=== PATIENT | female | born 1955 | race Caucasian/White ===

== ENCOUNTER 2019-05-02 18:26 | Emergency (ER) | payer OTHER ==
--- OUTSIDE RECORDS SUMMARY | 2019-05-02 18:45 | XMS REPORT | Continuity of Care Document ---
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 Social History Type Date Description Comments Sex Unknown Tobacco Use Start: Unknown Never Smoked Cigarettes Tobacco Use Start: Unknown Never Smoked Cigars Tobacco Use Start: Unknown Never Smoked A Pipe Smoking Status Reviewed: 05/02/19 Never Smoked A Pipe Smokeless Tobacco Never Used Smokeless Tobacco ETOH Use Rarely consumes alcohol Recreational Drug Use Denies Drug Use Tobacco Use Start: Unknown End: Patient is a former in high school- Unknown smoker only smoked for 3 months Exercise Type/Frequency Does not exercise Allergies, Adverse Reactions, Alerts Active Allergies Reaction Severity Comments Date Amoxicillin light sensitivity 01/01/2017 Medications Active Medications SIG Qnty Indications Ordering Provider Date Alendronate Sodium take 1 tablet by emerson Brantley MD 02/28/2018 mouth once a week 70mg Tablets on an empty stomach Advil 1 po as needed Unknown 200mg Tablets Stool Softener 1 by mouth 2-3 Unknown 100mg times daily while Capsules on narcotic pain medication prn D3-1000 1 daily Unknown 1000Unit Capsules Vitamin B12 TR 1 by mouth every Unknown day 1000mcg Tablets ER Immunizations Description No Information Available Vital Signs Date Vital Result Comment 05/02/2019 12:06pm Height 63.5 inches 5'3.50" Weight 131.25 lb Heart Rate 70 /min BP Systolic 150 mmHg 147/100 BP Diastolic 88 mmHg 147/100 Body Temperature 97.6 F O2 % BldC Oximetry 98 % BMI (Body Mass Index) 22.9 kg/m2 04/04/2019 8:45am Height 63.5 inches 5'3.50" Weight 130.00 lb w/ shoes Heart Rate 69 /min BP Systolic Sitting 116 mmHg BP Diastolic Sitting 79 mmHg BMI (Body Mass Index) 22.7 kg/m2 Results Description No Information Available Procedures Date Code Description Status 12/23/2018 [id number] Mammogram Completed 12/26/2017 [id number] Colonoscopy Completed 11/19/2017 [id number] Bone Mineral Density Test Completed 11/19/2017 [id number] Mammogram Completed 06/11/2004 [id number] Colonoscopy Completed Medical Devices Description No Information Available Encounters Type Date Location Provider Dx Diagnosis Office Visit 04/04/2019 [place] [facility] and Lai Brantley MD M81.0 Age- related 9:00a [facility]ocrinology of [facility] osteoporosis w/o current pathological fracture Office Visit 03/18/2019 [facility] Dermatology Madina Salinas L82.1 Other seborrheic 10:30a keratosis D22.5 Melanocytic nevi of trunk L72.0 Epidermal cyst Z08 Encntr for follow-up exam after trtmt for malignant neoplasm Z85.828 Personal history of other malignant neoplasm of skin Assessments Date Code Description Provider 05/02/2019 R10.31 Right lower quadrant pain Cisco Al, OVERSIZE LOAD PILOT ESCORT 05/02/2019 R10.813 Right lower quadrant abdominal tenderness Cisco Al, OVERSIZE LOAD PILOT ESCORT 04/04/2019 M81.0 Age-related osteoporosis without current Lai Brantley MD pathological fractu 03/18/2019 L82.1 Other seborrheic keratosis Madina Salinas MD 03/18/2019 D22.5 Melanocytic nevi of trunk Madina Salinas MD 03/18/2019 L72.0 Epidermal cyst Madina Salinas MD 03/18/2019 Z08 Encounter for follow-up examination after Madina Salinas MD completed treatment for malignant neoplasm 03/18/2019 Z85.828 Personal history of other malignant neoplasm of Madina Salinas MD skin Plan of Treatment Future Appointment(s):03/19/2020 11:00 am - Madina Salinas MD at [facility] Duitvuoyqds56/22/2019 - Cisco Melendez, NPR10.31 Right lower quadrant painComments: I am sending you for an image of your abdomen and some bloodwork.R10.813 Right lower quadrant abdominal tenderness Functional Status Description No Information Available Mental Status Description No Information Available Referrals Description No Information Available
--- OUTSIDE RECORDS SUMMARY | 2019-05-02 18:45 | XMS REPORT | Continuity of Care Document ---
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 Social History Type Date Description Comments Sex Unknown Tobacco Use Start: Unknown Never Smoked Cigarettes Tobacco Use Start: Unknown Never Smoked Cigars Tobacco Use Start: Unknown Never Smoked A Pipe Smoking Status Reviewed: 04/04/19 Never Smoked A Pipe Smokeless Tobacco Never [...] Date Alendronate Sodium take 1 tablet by 4tabs Lai Brantley MD 02/28/2018 mouth once a week [...] Available Vital Signs Date Vital Result Comment 04/04/2019 8:45am Height 63.5 inches 5'3.50" Weight 130.00 lb w/ shoes Heart Rate 69 /min BP Systolic Sitting 116 mmHg BP Diastolic Sitting 79 mmHg BMI (Body Mass Index) 22.7 kg/m2 08/08/2018 2:13pm Height 63.5 inches 5'3.50" Weight 140.25 lb Heart Rate 66 /min BP Systolic 127 mmHg BP Diastolic 85 mmHg Body Temperature 98.1 F O2 % BldC Oximetry 99 % BMI (Body Mass Index) 24.5 kg/m2 Results Description No Information Available Procedures Date Code Description Status 12/23/2018 [id number] Mammogram Completed 12/26/2017 [id number] Colonoscopy Completed 11/19/2017 [id number] Bone Mineral Density Test Completed 11/19/2017 [id number] Mammogram Completed 06/11/2004 [id number] Colonoscopy Completed Medical Devices Description No Information Available Encounters Type Date Location Provider Dx Diagnosis Office Visit 04/04/2019 [place] Diabetes and Lai Brantley MD M81.0 Age- related 9:00a [facility]ocrin[facility] of [facility] osteoporosis w/o current pathological fracture Office Visit 03/18/2019 [facility] Dermatology Madina Salinas L82.1 Other seborrheic 10:30a keratosis D22.5 Melanocytic nevi of trunk L72.0 Epidermal cyst Z08 Encntr for follow-up exam after trtmt for malignant neoplasm Z85.828 Personal history of other malignant neoplasm of skin Assessments Date Code Description Provider 04/04/2019 M81.0 Age-related osteoporosis without current Lai [...] 11:00 am - Madina Salinas MD at [facility] Xpaoseuptyi15/25/2019 - Lai Brantley MDM81.0 Age-related osteoporosis without current pathological fractuFollow up:1 yearInstructions:1. Continue Fosamax 70mg once weekly for now. 2. You may try stopping Fosamax for 1 month to see if stomach symptoms resolve. 3. You are a candidate for once yearly Reclast infusion. 4. Return in 1 year. Functional Status Description No Information Available Mental Status Description No Information Available Referrals Description No Information Available
[2019-05-02 19:23] LABS: ABS Basophils 0.1 10^3/ul (0-0.2); ABS Eosinophils 0.2 10^3/ul (0-0.6); ABS Lymphocytes 2.2 10^3/ul (1.0-4.8); ABS Monocytes 0.5 10^3/ul (0-0.8); ABS Neutrophils 3.2 10^3/ul (1.5-7.7); Eosinophil % 3.3 %; Hematocrit 39 % (35-47); Hemoglobin 13.3 g/dL (12.0-16.0); Lymphocyte % 35.6 %; Mean Corpuscular HGB Conc 34 g/dL (31-36); Mean Corpuscular Hemoglobin 29 pg (27-31); Mean Corpuscular Volume 84 fL (80-97); Mean Platelet Volume 6.8 fL (7.4-10.4); Platelet Count 225 10^3/uL (150-450); Red Blood Count 4.62 10^6 /uL (3.70-4.87); Red Cell Distribution Width 13 % (10-15); White Blood Count 6.1 10^3/uL (3.5-10.8)
[2019-05-02 19:37] LABS: Albumin 4.3 g/dL (3.2-5.2); Albumin/Globulin Ratio 1.6 (1-3); BUN/Creatinine Ratio 13.9 (8-20); Calcium 9.4 mg/dL (8.6-10.3); EGFR African American 88.7 (>60); EGFR Non-African American 73.3 (>60); Globulin 2.7 g/dL (2-4); Potassium 3.7 mmol/L (3.5-5.0); Total Bilirubin 0.5 mg/dL (0.2-1.0)
[2019-05-02 22:27] LABS: INR 1.01 (0.82-1.09)
[2019-05-03] MEDS ORDERED: NS 0.9% 1000 ML** 1,000 ML IV ONE (00:05)
--- NOTE | 2019-05-03 00:05 | ED ---
Abdominal Pain/Female - HPI Summary HPI Summary: Patient complains of intermittent right lower quadrant pain 5 months, significantly worse and more frequent in the past 3 days. Patient states abdominal pain has been up to 9/10 at its worst. No active pain at this time. Patient was sent by PCP for outpatient CAT scan to [facility] today, CT positive for acute appendicitis, patient brought to the ED for further evaluation. Patient denies fever, cough, sore throat, CP, SOB, N/3/D, change in urine, change in BM , vaginal symptoms. Medical history is none. Abdominal surgical history is none. No anti-coag. - History of Current Complaint Chief Complaint: EDAbdPain Stated Complaint: ABD PAIN PER PT Time Seen by Provider: 05/03/19 00:02 Hx Obtained From: Patient Onset/Duration: Gradual Onset, Lasting Weeks Timing: Intermittent Episode Lasting Severity Initially: Severe Severity Currently: None Pain Intensity: 0 Pain Scale Used: 0-10 Numeric Location: Discrete At: RLQ Radiates: No Character: Sharp Aggravating Factor(s): Nothing Alleviating Factor(s): Nothing Associated Signs and Symptoms: Positive: Negative Allergies/Adverse Reactions: Allergies Allergy/AdvReac Type Severity Reaction Status Date / Time amoxicillin Allergy Unknown Verified 05/02/19 18:30 Reaction Details Home Medications: Home Medications Cyanocobalamin TAB* [Vitamin B12 TAB*] 1,000 mcg PO DAILY 05/03/19 [History Confirmed 05/03/19] Docusate Sodium 100 mg PO DAILY 05/03/19 [History Confirmed 05/03/19] PMH/Surg Hx/FS Hx/Imm Hx Endocrine/Hematology History: Denies: Hx Diabetes Cardiovascular History: Denies: Hx Pacemaker/ICD History: Denies: Hx Dialysis Musculoskeletal History: Reports: Hx Osteoporosis Sensory History: Denies: Hx Eye Prosthesis Opthamlomology History: Denies: Hx Legally Blind EENT History: Denies: Hx Deafness Neurological History: Denies: Hx Dementia - Surgical History Surgery Procedure, Year, and Place: CERVICAL [place] Bx;. TONSILLECTOMY;. 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; Infectious Disease History: No Infectious Disease History: Denies: Traveled Outside the [place] in Last 30 Days - Family History Known Family History: Negative: Respiratory Disease - Social History Alcohol Use: None Substance Use Type: Reports: None Smoking Status (MU): Never Smoked Tobacco Review of Systems Constitutional: Negative Eyes: Negative ENT: Negative Cardiovascular: Negative Respiratory: Negative Positive: Abdominal Pain Genitourinary: Negative Musculoskeletal: Negative Skin: Negative Neurological: Negative Psychological: Normal All Other Systems Reviewed And Are Negative: Yes Physical Exam - Summary Physical Exam Summary: Very minimal tenderness right lower quadrant with deep pressure. Abdominal exam otherwise unremarkable. Triage Information Reviewed: Yes Vital Signs On Initial Exam: Initial Vitals Temp Pulse Resp BP Pulse Ox 98.6 F 78 19 162/103 96 05/02/19 18:27 05/02/19 18:27 05/02/19 18:27 05/02/19 18:27 05/02/19 18:27 Vital Signs Reviewed: Yes Appearance: Positive: Well-Appearing Skin: Positive: Warm Head/Face: Positive: Normal Head/Face Inspection Eyes: Positive: Normal Neck: Positive: Supple Respiratory/Lung Sounds: Positive: Clear to Auscultation Cardiovascular: Positive: Normal Abdomen Description: Positive: Other: Musculoskeletal: Positive: Normal Neurological: Positive: Normal Psychiatric: Positive: Normal AVPU Assessment: Alert - Nima Coma Scale Best Eye Response: 4 - Spontaneous Best Motor Response: 6 - Obeys Commands Best Verbal Response: 5 - Oriented Coma Scale Total: 15 Procedures - Sedation Patient Received Moderate/Deep Sedation with Procedure: No Diagnostics - Vital Signs Vital Signs Temp Pulse Resp BP Pulse Ox 05/02/19 22:40 98.7 F 70 20 137/72 97 05/02/19 20:40 97.8 F 72 18 122/87 100 05/02/19 18:27 98.6 F 78 19 162/103 96 - Laboratory Lab Results: Lab Results 05/02/19 05/02/19 05/02/19 Range/Units 19:12 19:12 22:08 WBC 6.1 (3.5-10.8) 10^3/uL RBC 4.62 (3.70-4.87) 10^6 /uL Hgb 13.3 (12.0-16.0) g/dL Hct 39 (35-47) % MCV 84 (80-97) fL MCH 29 (27-31) pg MCHC 34 (31-36) g/dL RDW 13 (10-15) % Plt Count 225 (150-450) 10^3/uL MPV 6.8 L (7.4-10.4) fL Neut % (Auto) 51.5 % Lymph % (Auto) 35.6 % [place] % (Auto) 8.4 % Eos % (Auto) 3.3 % Baso % (Auto) 1.2 % Absolute Neuts (auto) 3.2 (1.5-7.7) 10^3/ul Absolute Lymphs (auto) 2.2 (1.0-4.8) 10^3/ul Absolute Monos (auto) 0.5 (0-0.8) 10^3/ul Absolute Eos (auto) 0.2 (0-0.6) 10^3/ul Absolute Basos (auto) 0.1 (0-0.2) 10^3/ul Absolute Nucleated RBC 0.0 10^3/ul Nucleated RBC % 0.0 INR (Anticoag Therapy) 1.01 (0.82-1.09) Sodium 138 (135-145) mmol/L Potassium 3.7 (3.5-5.0) mmol/L Chloride 103 (101-111) mmol/L Carbon Dioxide 29 (22-32) mmol/L Anion Gap 6 (2-11) mmol/L BUN 11 (6-24) mg/dL Creatinine 0.79 (0.51-0.95) mg/dL Est GFR ( Amer) 88.7 (>60) Est GFR (Non-Af Amer) 73.3 (>60) BUN/Creatinine Ratio 13.9 (8-20) Glucose 92 (70-100) mg/dL Calcium 9.4 (8.6-10.3) mg/dL Total Bilirubin 0.50 (0.2-1.0) mg/dL AST 14 (13-39) U/L ALT 8 (7-52) U/L Alkaline Phosphatase 50 (34-104) U/L Total Protein 7.0 (6.4-8.9) g/dL Albumin 4.3 (3.2-5.2) g/dL Globulin 2.7 (2-4) g/dL Albumin/Globulin Ratio 1.6 (1-3) Result Diagrams: 05/02/19 19:12 05/02/19 19:12 Lab Statement: Any lab studies that have been ordered have been reviewed, and results considered in the medical decision making process. Re-Evaluation - Re-Evaluation First Eval Re-Evaluation Time: :34 Comment: 0334 - Patient had been evaluated by Dr. Divya Sanches, surgery. Patient had out-patient CT ABD/PEL 05/02/19 and was noted to have acute appendicitis. On re-eval, patient reports no abdominal pain and no fever. There is no abdominal tenderness to palpitation observed. Bloodwork showed no white count. Patient will be discharged to home with prescription for Augmentin, BID, for four days and will follow up with Dr. Sanches on outpatient basis. Abdominal Pain Fem Course/Dx - Course Course Of Treatment: Patient complains of intermittent right lower quadrant pain 5 months, significantly worse and more frequent in the past 3 days. Patient states abdominal pain has been up to 9/10 at its worst. No active pain at this time. Patient was sent by PCP for outpatient CAT scan to [facility] today, CT positive for acute appendicitis, patient brought to the ED for further evaluation. Patient denies fever, cough, sore throat, CP, SOB, N/3/D, change in urine, change in BM, vaginal symptoms. Medical history is none. Abdominal surgical history is none. No anti-coag. Vital signs within normal limits. Labs unremarkable. CT scan positive for acute appendicitis. Discussed patient with surgery conventions assistant Dr. Sanches who recommended discharge and follow-up in clinic. - Diagnoses Provider Diagnoses: Acute appendicitis Discharge ED - Sign-Out/Discharge Documenting (check all that apply): Patient Departure - Discharge Plan Condition: Stable Disposition: HOME Prescriptions: Amoxicillin/Clavulanate TAB* [Augmentin TAB 875*] 875 mg PO BID #28 tab Patient Education Materials: Acute Abdominal Pain (ED) Referrals: Divya Sanches MD [Medical Doctor] - Yinka Young MD [Primary Care Provider] - Additional Instructions: PLEASE RETURN TO ED FOR ANY NEW OR WORSENING SYMPTOMS. PLEASE FOLLOW UP WITH DR. SANCHES, SURGERY, WITHIN THREE DAYS. - Billing Disposition and Condition Condition: STABLE Disposition: Home
[2019-05-03 01:17] LABS: Urine Appearance Clear; Urine Bilirubin Negative (Negative); Urine Blood 1+ (Negative); Urine Color Straw; Urine Glucose Negative (Negative); Urine Ketones Trace (Negative); Urine Nitrite Negative (Negative); Urine Protein Negative (Negative); Urine Specific Gravity 1.028 (1.010-1.030); Urine Urobilinogen Negative (Negative)
[2019-05-03 01:22] LABS: Urine Bacteria Absent (Absent); Urine Red Blood Cell 1+(3-5/hpf) (Absent); Urine Squamous Epithelial Cell Present (Absent); Urine White Blood Cell Trace(0-5/hpf) (Absent)
--- NOTE | 2019-05-03 03:29 | CONSULT ---
Consult Consult: DATE OF CONSULTATION: 05/03/19 REASON FOR CONSULTATION: Rule out appendicitis HPI: Ms. Singletary is a 64F with a history of osteoporosis who presented to the ED after a CT scan showing a dilated appendix. She reports that she has had a dull ache intermittently in the RLQ for over 10 years. She has had sharper pain for the past 2 months which resolves after a few minutes. The pain may last up to 1.5 hours but always resolves. She denies nausea, vomiting, or fevers. She has intermittent constipation for which she takes stools softeners routinely. She denies bloodly or black stools. She felt the intensity of the pain was more severe in the past couple of days and saw her PCP. A CT scan was ordered which was remarkable for a dilated appendix and she was urged to go to the ED. She had some pain in the waiting room and nausea off and on today. However, the patient is actually asymptomatic now. Last colonoscopy was in 2018 during which she had benign polyps removed. PAST MEDICAL HISTORY: Osteoporosis PAST SURGICAL HISTORY: Cone biopsy of cervix, tonsillectomy Home Medications Medication Instructions Recorded Confirmed Type Cholecalciferol (Vitamin D3) 1,000 unit PO DAILY 12/26/17 05/03/19 History [Vitamin D3] Cyanocobalamin TAB* [Vitamin B12 1,000 mcg PO DAILY 05/03/19 05/03/19 History TAB*] Docusate Sodium 100 mg PO DAILY 05/03/19 05/03/19 History Allergies amoxicillin Allergy (Verified 05/02/19 18:30) Rash with sun exposure FAMILY HISTORY: Father with diabetes. Mother with hydrocephalus. Brother had a stroke at age 65. Another brother with cerebral palsy and significant disability. SOCIAL HISTORY: Patient is single and lives alone. She has 1 son who lives in [facility]. She denies smoking, alcohol use, or recreational drug use. PHYSICAL EXAM: Temp Pulse Resp BP Pulse Ox 98.7 F 71 20 126/83 98 05/02/19 22:40 05/03/19 02:05 05/02/19 22:40 05/03/19 02:05 05/03/19 02:05 General: No acute distress. Appears tired Head: Normocephalic, atraumatic Eyes: EOMI. No scleral icterus Mouth: Mucous membranes moist CV: Regular rate and rhythm Chest: Clear to auscultation bilaterally Abdomen: Soft, nontender to deep palpation, nondistended. No rebound or guarding. Skin: No lesions, intact. Extremities: No pedal edema bilaterally Neuro: Alert and oriented x3 Laboratory Results - last 24 hr 05/02/19 05/02/19 05/02/19 19:12 19:12 22:08 WBC 6.1 RBC 4.62 Hgb 13.3 Hct 39 MCV 84 MCH 29 MCHC 34 RDW 13 Plt Count 225 MPV 6.8 L Neut % (Auto) 51.5 Lymph % (Auto) 35.6 [place] % (Auto) 8.4 Eos % (Auto) 3.3 Baso % (Auto) 1.2 Absolute Neuts (auto) 3.2 Absolute Lymphs (auto) 2.2 Absolute Monos (auto) 0.5 Absolute Eos (auto) 0.2 Absolute Basos (auto) 0.1 Absolute Nucleated RBC 0.0 Nucleated RBC % 0.0 INR (Anticoag Therapy) 1.01 Sodium 138 Potassium 3.7 Chloride 103 Carbon Dioxide 29 Anion Gap 6 BUN 11 Creatinine 0.79 Est GFR ( Amer) 88.7 Est GFR (Non-Af Amer) 73.3 BUN/Creatinine Ratio 13.9 Glucose 92 Lactic Acid Calcium 9.4 Total Bilirubin 0.50 AST 14 ALT 8 Alkaline Phosphatase 50 C-Reactive Protein Total Protein 7.0 Albumin 4.3 Globulin 2.7 Albumin/Globulin Ratio 1.6 Urine Color Urine Appearance Urine pH Ur Specific [place] Urine Protein Urine Ketones Urine Blood Urine Nitrate Urine Bilirubin Urine Urobilinogen Ur Leukocyte Esterase Urine WBC (Auto) Urine RBC (Auto) Ur Squamous Epith Cells Urine Bacteria Urine Glucose 05/03/19 05/03/19 05/03/19 00:13 00:24 00:28 WBC RBC Hgb Hct MCV MCH MCHC RDW Plt Count MPV Neut % (Auto) Lymph % (Auto) [place] % (Auto) Eos % (Auto) Baso % (Auto) Absolute Neuts (auto) Absolute Lymphs (auto) Absolute Monos (auto) Absolute Eos (auto) Absolute Basos (auto) Absolute Nucleated RBC Nucleated RBC % INR (Anticoag Therapy) Sodium Potassium Chloride Carbon Dioxide Anion Gap BUN Creatinine Est GFR ( Amer) Est GFR (Non-Af Amer) BUN/Creatinine Ratio Glucose Lactic Acid 0.5 Calcium Total Bilirubin AST ALT Alkaline Phosphatase C-Reactive Protein < 0.30 Total Protein Albumin Globulin Albumin/Globulin Ratio Urine Color Straw Urine Appearance Clear Urine pH 7.0 Ur Specific [place] 1.028 Urine Protein Negative Urine Ketones Trace A Urine Blood 1+ A Urine Nitrate Negative Urine Bilirubin Negative Urine Urobilinogen Negative Ur Leukocyte Esterase Trace A Urine WBC (Auto) Trace(0-5/hpf) Urine RBC (Auto) 1+(3-5/hpf) A Ur Squamous Epith Cells Present A Urine Bacteria Absent Urine Glucose Negative CT abdomen/pelvis: Blind ending tubular structure in RLQ, adjacent to cecum dilated to 1.1 cm, consistent with dilated appendix. Suggestive of acute appendicitis. A&P 64F with chronic intermittent, self-resolving abdominal pain who was found to have dilated appendix suggesting appendicitis. She is currently asymptomatic without any abdominal pain despite deep palpation. Lab work and vitals do not suggest active infection. I discussed with the patient at length about treatment options. I talked about treating this as acute appendicitis, however her symptoms are not typical for appendicitis so her episodes of pain may not resolve after appendectomy. I also talked about completing a course of antibiotics as an outpatient with or without elective appendectomy. The patient does not want to stay in the hospital. She is comfortable taking oral antibiotics and following up in clinic in the next 1-2 weeks. She understands that if the pain is more persistent, if she develops nausea, vomiting, fever, or chills she should return to the ED for re-evaluation. -14-day course of Augmentin -Follow up in clinic in 1-2 weeks. I will talk with the clinic on Sunday about scheduling an appointment. The patient can also call the clinic at [phone] if she has more questions. I spent 60 minutes examining the patient and discussing and forming a plan.
[2019-05-03] MEDS ORDERED: Amoxicillin/Clavulanate TAB* 875 MG PO ONE (03:31)
--- NOTE | 2019-05-03 03:31 | ED ---
Progress - Progress Note Progress Note: Patient is received as a sign-out from BOBBY Estrada at 0200 05/03/19 shift end pending surgical consult of patient. 0334 - Patient had been evaluated by Dr. Divya Sanches, surgery. Patient had out-patient CT ABD/PEL 05/02/19 and was noted to have acute appendicitis. On re-eval, patient reports no abdominal pain and no fever. There is no abdominal tenderness to palpitation observed. Bloodwork showed no white count. Patient will be discharged to home with prescription for Augmentin, BID, for four days and will follow up with Dr. Sanches on outpatient basis. Re-Evaluation - Re-Evaluation First Eval Re-Evaluation Time: 03:34 Comment: 0334 - Patient had been evaluated by Dr. Divya Sanches, surgery. Patient had out-patient CT ABD/PEL 05/02/19 and was noted to have acute appendicitis. On re-eval, patient reports no abdominal pain and no fever. There is no abdominal tenderness to palpitation observed. Bloodwork showed no white count. Patient will be discharged to home with prescription for Augmentin, BID, for four days and will follow up with Dr. Sanches on outpatient basis. Course/Dx - Course Course Of Treatment: During ED course, patient received Augmentin 875 mg PO. - Diagnoses Provider Diagnoses: Acute appendicitis Discharge ED - Sign-Out/Discharge Documenting (check all that apply): Patient Departure - discharge - Discharge Plan Condition: Stable Disposition: HOME Prescriptions: Amoxicillin/Clavulanate TAB* [Augmentin TAB 875*] 875 mg PO BID #28 tab Patient Education Materials: Acute Abdominal Pain (ED) Referrals: Yinka Young MD [Primary Care Provider] - Divya Sanches MD [Medical Doctor] - Additional Instructions: PLEASE RETURN TO ED FOR ANY NEW OR WORSENING SYMPTOMS. PLEASE FOLLOW UP WITH DR. SANCHES, SURGERY, WITHIN THREE DAYS. - Billing Disposition and Condition Condition: STABLE Disposition: Home - Attestation Statements Document Initiated by Scribe: Yes Documenting Scribe: PAYAL CRUZ Provider For Whom Scribe is Documenting (Include Credential): SERINA BECERRA MD Scribe Attestation: PAYAL Young, scribed for SERINA BECERRA MD on 05/03/19 at 0601. Scribe Documentation Reviewed: Yes Provider Attestation: The documentation as recorded by the scribe, PAYAL CRUZ accurately reflects the service I personally performed and the decisions made by me, SERINA BECERRA MD Status of Solitario Document: Viewed
[2019-05-03 03:55] VITALS: BP 140/79
== END 2019-05-03 03:54 | disposition home or self-care (01) ==
LOC: ED 18:26
DX: K35.80 Unspecified acute appendicitis (principal); M81.0 Age-related osteoporosis without current pathological fracture; Z85.828 Personal history of other malignant neoplasm of skin; Z79.899 Other long term (current) drug therapy; Z88.0 Allergy status to penicillin
CPT/HCPCS: 36415; 80053; 81003; 83605; 85025; 85610; 86140; 87040; 96360; 99283; A9270-GY